=== PATIENT | female | born 1940 | race Caucasian/White ===

== ENCOUNTER 2023-02-19 07:12 | Inpatient (IN) ==
[2023-02-19] MEDS ORDERED: SODIUM CHLORIDE 0.9% 1,000 ML IV ONE (07:19)
--- NOTE | 2023-02-19 07:23 | Emergency Department Note ---
Impression & Plan Syncope, Laceration of head, Aspiration pneumonia, Hypoxia ED Provider Note Name: HENRI PICKETT Age: 83 Sex: Female Arrives Via: Ambulance Informant: Patient, , EMS, son ED Provider: Bay Merritt MD Chief Complaint: Head injury Impression: As per impressions above Medical Decision Making: Pleasant 83-year-old female without significant past medical history arrives following a syncopal event following a night of vomiting. Patient did strike her head and has a large hematoma to left posterior scalp with a laceration. This was closed with [address] of the head is fortunately negative has a CT cervical spine. Patient was a bit confused initially but came to throughout the ER stay. Oxygenation noted to be a bit on the low side she was put on 2 L with good success. Chest x-ray does show some bilateral infiltrates. I suspect that this is an aspiration pneumonia but in the setting of recent travel hypoxia and syncope a CT PE study is indicated furthermore confirmed needed as D-dimer is significantly elevated. CT PE study fortunately shows no overt PE and does show some possible infiltrates. Laboratory testing is otherwise benign. I will get cultures given the hypoxia altered mental status initially and infectious findings. Blood cultures lactic acid obtained and patient was then given some IV Unasyn for aspiration coverage. Hospitalist consulted for further management. Triage/Nursing Notes reviewed by Me Differential:Vasovagal event, dehydration, infection, hypoglycemia, electrolyte abnormalities, cardiac sources, intracerebral event, pulmonary embolism, seizure, toxicologic, neurologic, as well as other pathologies. Vital Signs: reviewed and remarkable for hypoxia Interventions: Unasyn 3 g IV Labs:ED labs Reviewed by me and remarkable for elevated D-dimer all other labs reviewed by me Imagin view chest x-ray as per my interpretation bilateral opacities throughout concerning for multifocal pneumonia versus aspiration. CT of the head without contrast as per my informal interpretation large hematoma of the left posterior scalp no intracranial hemorrhage or skull fracture appreciated. Confirmed by radiologist. CT of the cervical spine without contrast as per my informal interpretation no evidence of fracture or dislocation. Confirmed by radiologist. EKG:As per my interpretation. Indication syncope. Normal sinus rhythm at 96 bpm no ectopy nor ischemia with a QTc of 434. There is a left axis deviation. There are no previous EKGs for comparison. Cardiac/Tele Monitoring: Cardiac Monitoring: An Order was placed for continuous cardiac monitoring. The monitor shows a rate of 90 with a normal sinus rhythm. Consults:Dr. [facility]so[facility] hospitalist service Plan: Disposition:Hospitalization. Condition: Good History of Present Illness: 83-year-old female arrives following a syncopal event. Patient notes she does not really remember what happened this morning. She remembers having [place] food last night going to bed. She thinks she got up to go to the bathroom and does not recall anything from there. notes patient was vomiting and had a syncopal event falling and hitting her head. Patient came to confused. EMS was called. Patient notes a mild frontal headache. Denies any neck pain or stiffness. She is not having any chest pain, shortness of breath, abdominal pain, back pain, current nausea, urinary bowel symptoms, leg swelling or other concerning signs or symptoms. Patient denies any significant past medical history other than a previous lumpectomy. She denies any DVT/PE history in her family. She did have a trip to [facility] from [place] within the last week. She is here currently visiting her son who is a associate professor of biblical studies. Past Medical History:Lumpectomy patient denies other past medical history including stating no history of DVT/PE, CAD, CVA, bleeding. Home Medications:None. States she does not take any aspirin on a daily basis. Allergies:No known drug allergies Vitals:Blood Pressure: 140/80, Pulse 70, RR 20, T 36.8C, O2 88% on RA Physical Exam: GENERAL: Patient is tired/dehydrated/mildly confused appearing and in no acute distress. HEAD: AT/NC NECK: No tenderness palpation. No step-offs. RESPIRATORY: No dyspnea. Clear to auscultation and equal bilaterally. CARDIOVASCULAR: Regular rate and rhythm.No murmur appreciated. GASTROINTESTINAL: Abdomen soft, non-tender, no peritonitis. BACK: No midline tenderness, no CVA tenderness EXTREMITIES: Normal motion all extremities, no cyanosis, no edema. NEUROLOGIC: Alert and oriented though appears just slightly confused. No focal neurologic deficits appreciated SKIN: No rash, no jaundice, no diaphoresis. PSYCH: Appropriate GCS: 15 ED Course: Times/Reassessments: Multiple repeat evaluations, patient's confusion completely resolved she is awake alert oriented. Laceration repaired by me. Given hypoxia hospitalist consulted for further management. Laceration Repair: Location: Posterior left scalp Complexity: Simple Length: 2 cm Verbal consent was obtained after the risks and benefits were explained, including but not limited to bleeding, scarring, infection, pain, and bone/joint/nerve damage. At this time, the risks of the procedure are less than the risks of NOT performing the procedure. A time out was taken and the correct patient and site identified. The skin was prepped with betadine. Lidocaine not used as this would cause just as much discomfort as the 2 projected nicholas that were needed. Copious irrigation was performed using Betadine. The skin was re- prepped with betadine and a sterile field set. The wound was explored for foreign bodies and none found. Examination revealed no injury to deep structures such as tendons, bone, or significant blood vessels. Debridement was not performed. The wound edges were approximated using 2 nicholas. Hemostasis and excellent approximation was achieved. No complications and the patient tolerated the procedure well. I personally performed the entire procedure. Bay Merritt MD Past Med/Surg History Social History Smoking Status: Never smoker Preferred Language: Chinese Feels Safe at Home: Yes Allergies Allergies Allergy/AdvReac Type Severity Reaction Status Date / Time No Known Allergies Allergy Unverified 02/19/23 10:11 Home Meds Home Medications Medication Instructions Recorded Confirmed Allergy Tablet 1 tab PO QAM 02/19/23 02/19/23 albuterol sulfate 90 mcg/actuation 2 puff inhalation QAM 02/19/23 02/19/23 aerosol inhaler calcium 1 tab PO QAM 02/19/23 02/19/23 ciclesonide 160 mcg/actuation 1 puff inhalation BID 02/19/23 02/19/23 aerosol inhaler (Alvesco) doxycycline monohydrate 100 mg 100 mg PO QAM 02/19/23 02/19/23 tablet multivitamin 1 tab PO QAM 02/19/23 02/19/23 Results & Data (ED) Vital Signs Vital Signs - 24 hr 02/19/23 07:23 02/19/23 07:23 02/19/23 07:23 Temperature 36.8 C Temperature Source Oral Pulse Rate 95 H 95 H Pulse Rate [Apical] 94 H Respiratory Rate 19 Respiratory Effort / Characteristics Non-Labored Respiratory Depth Normal Blood Pressure 163/97 H Blood Pressure [Right Arm] 163/97 H Blood Pressure Mean 119 Blood Pressure Mean [Right Arm] 119 Pulse Oximetry 94 Oxygen Delivery Method Room Air Oxygen Flow Rate Sepsis Recent Fever Within 48 Hours No Sepsis New/Unexplained Change in Mental Status No Sepsis Action Taken by Nursing No Action Required 02/19/23 08:00 02/19/23 08:08 Temperature Temperature Source Pulse Rate Pulse Rate [Apical] Respiratory Rate Respiratory Effort / Characteristics Respiratory Depth Blood Pressure Blood Pressure [Right Arm] Blood Pressure Mean Blood Pressure Mean [Right Arm] Pulse Oximetry 88 L 93 Oxygen Delivery Method Room Air Nasal Cannula Oxygen Flow Rate 2 Sepsis Recent Fever Within 48 Hours Sepsis New/Unexplained Change in Mental Status Sepsis Action Taken by Nursing Laboratory Data 02/19/23 07:20 02/19/23 07:20 Lab Results 02/19/23 02/19/23 02/19/23 Range/Units 07:20 09:10 09:36 WBC 8.64 (4.8-10.8) K/ul RBC 5.08 (4.20-5.40) M/uL Hgb 15.0 (12.0-16.0) g/dl Hct 45.8 (37.0-47.0) % MCV 90.2 (80.0-100.0) fL MCH 29.5 (25.0-34.0) pg MCHC 32.8 (32.0-36.0) g/dL RDW Std Deviation 43.5 (36.4-46.3) fL RDW Coeff of Doretha 13.0 (11.5-14.5) % Plt Count 220 (130-400) K/uL MPV 10.9 (9.4-12.4) fL Immature Gran % (Auto) 0.6 % Neut % (Auto) 87.1 % Lymph % (Auto) 5.1 % [place] % (Auto) 6.9 % Eos % (Auto) 0.0 % Baso % (Auto) 0.3 % Neut # (Auto) 7.52 H (1.40-6.50) K/uL Lymph # (Auto) 0.44 L (1.20-3.40) K/uL [place] # (Auto) 0.60 H (0.11-0.59) K/uL Eos # (Auto) 0.00 (0.00-0.50) K/uL Baso # (Auto) 0.03 (0.00-0.20) K/uL Immature Gran # (Auto) 0.05 (0.01-0.20) K/uL D-Dimer 1560 H* (0-500) ug/L FEU Sodium 137 (136-145) mmol/L Potassium 3.8 (3.5-5.1) mmol/L Chloride 103 (98-107) mmol/L Carbon Dioxide 28 (21-32) mmol/L Anion Gap 6 (3-11) BUN 17 (6-23) mg/dl Creatinine 0.73 (0.6-1.2) mg/dl Est Cr Clr Drug Dosing 56.7 ml/min Est GFR ( Amer) 88.9 ml/min Est GFR (Non-Af Amer) 76.7 ml/min BUN/Creatinine Ratio 23.3 H (10-20) Glucose 114 H (70-99(Fasting)) mg/dl Lactate 0.7 (0.4-2.0) mmol/L Calcium 9.6 (8.6-10.3) mg/dl Magnesium 2.3 (1.7-2.4) mg/dl Total Bilirubin 0.8 (0.2-1.0) mg/dl Direct Bilirubin 0.1 (0-0.2) mg/dl AST 40 H (13-39) U/L ALT 30 (7-52) U/L Alkaline Phosphatase 75 (34-104) U/L Troponin I High Sens 3.4 (0-14) pg/ml Total Protein 7.6 (6.0-8.3) gm/dl Albumin 4.4 (3.4-5.0) gm/dl Lipase 22 (11-82) U/L Urine Color Yellow Urine Appearance Cloudy A (Clear) Urine pH 7.0 (4.5-7.5) Ur Specific [place] 1.023 (1.000-1.030) Urine Protein Trace H (Negative) Urine Glucose (UA) Negative (Negative) Urine Ketones Negative (Negative) Urine Blood Negative (Negative) Urine Nitrite Negative (Negative) Urine Bilirubin Negative (Negative) Urine Urobilinogen Negative (Negative) Ur Leukocyte Esterase 2+ H (Negative) Urine WBC (Auto) 10-30 H (0-5) /hpf Urine RBC (Auto) 0-4 (0-4) /hpf U Hyaline Cast (Auto) 1-5 (0-5) /lpf U Epithel Cells (Auto) 20-30 H (0-5) /lpf Urine Bacteria (Auto) Negative (Negative) Administered Medications Discontinued Medications Diphtheria/Pertussis/Tetanus Vacc (Diphtheria/Tetanus/Pertussis Vaccine (Tdap, Age 7+Yrs) 0.5ml Syr/Vl) 0.5 ml IM .ONCE ONE Stop: 02/19/23 08:21 Last Admin: 02/19/23 09:08 Dose: 0.5 ml Documented By: SUKHDEV Sodium Chloride (Nss) 1,000 mls @ 999 mls/hr IV .Q1H1M ONE Stop: 02/19/23 08:19 Last Infusion: 02/19/23 08:58 Dose: Infused Documented By: Admin: 02/19/23 07:56 Dose: 999 mls/hr Documented By: SUKHDEV Ampicillin Sodium/Sulbactam Sodium 3,000 mg/ Sodium Chloride 100 mls @ 200 mls/hr IV NOW STA Stop: 02/19/23 09:40 Last Infusion: 02/19/23 10:40 Dose: Infused Documented By: Admin: 02/19/23 10:10 Dose: 200 mls/hr Documented By: SUKHDEV Ioversol (Optiray 320 125ml) 66 ml IV ONCE ONE Stop: 02/19/23 08:43 Last Admin: 02/19/23 08:42 Dose: 66 ml Documented By: GEM Imaging Data Radiologist's Impression: Cervical Spine CT 02/19/23 07:19 CT cervical spine wo con CT DOSE: 1064.67 mGy.cm CLINICAL HISTORY: 83 years-old Female with syncope, collapse. Acute head and neck trauma status post fall COMPARISON: Head CT of same day TECHNIQUE: Multiple axial CT images of the cervical spine were obtained without contrast. A dose lowering technique was utilized adhering to the principles of ALARA. FINDINGS: Demineralized appearance of the bones. Minimal multilevel intervertebral disc space narrowing with mild uncovertebral hypertrophy and facet arthrosis. Moderate to severe C1-C2 degeneration. Moderate facet arthrosis of the upper thoracic spine. The cervical soft tissues appear unremarkable. The visualized lung apices appear clear. IMPRESSION: No acute cervical spine fracture or subluxation. ACT 112: Negative or not required by law. The above report was generated using voice recognition software. It may contain grammatical, syntax or spelling errors. Electronically signed by: Ever Aquino M.D. 02/19/2023 8:14 AM Chest X-Ray 02/19/23 07:19 SINGLE VIEW CHEST CLINICAL HISTORY: Syncope. FINDINGS: An AP, portable, upright chest radiograph is obtained. No prior studies are available for comparison at the time of dictation. The examination is degraded by portable technique and patient rotation. The heart is enlarged. The pulmonary vasculature is noncongested. There is elevation right hemidiaphragm. There are patchy airspace opacities in the right midlung and at the left lung base. No large pleural effusion or pneumothorax is seen. The skeletal structures are osteopenic. The bony thorax is grossly intact. IMPRESSION: 1. Cardiomegaly without radiographic evidence of congestive failure. 2. Patchy airspace opacities are seen in the right mid lung and at the left lung base. Correlate clinically for evidence of pneumonia/aspiration pneumonitis. Radiographic follow-up to resolution is recommended. ACT 112: Negative or not required by law. Electronically signed by: Jimmie uMrillo M.D. 02/19/2023 7:[address] 02/19/23 07:19 CT SCAN OF THE BRAIN WITHOUT IV CONTRAST CLINICAL HISTORY: Syncope. COMPARISON STUDY: No priors. TECHNIQUE: Unenhanced axial CT scan of the brain is performed from the vertex to the skull base. A dose lowering technique was utilized adhering to the principles of ALARA. FINDINGS: Brain parenchyma: There is age-related involutional change noting moderate subcortical and periventricular microangiopathic disease. There is no hemorrhage, mass effect, or evidence of acute territorial ischemia by CT criteria. Smith-white matter differentiation is preserved. No extra-axial fluid collection is seen. Ventricles, sulci, cisterns: Prominent secondary to involutional change. Intracranial vasculature: There is minimal atherosclerotic calcification of the cavernous carotid artery. Calvarium: The skeletal structures are osteopenic. No depressed calvarial fractures seen. Soft tissues: There is a left posterior parietal scalp injury. Sinuses and mastoids: The visualized paranasal sinuses are clear. The mastoid air cells are well pneumatized. Orbits: The bony orbits are grossly intact. There are bilateral ocular lens implants. IMPRESSION: 1. There is no hemorrhage, mass effect, or evidence of acute territorial ischemia by CT criteria. 2. Left posterior parietal scalp injury. ACT 112: Negative or not required by law. Electronically signed by: Jimmie Murillo M.D. 02/19/2023 7:52 AM Chest CTA 02/19/23 08:16 CT ANGIOGRAM OF THE CHEST CLINICAL HISTORY: Syncope. COMPARISON STUDY: Chest x-ray dated 02/19/2023. TECHNIQUE: Following the IV administration of 66 cc of Optiray 320, CT angiogram of the chest was performed from the upper abdomen to the thoracic inlet utilizing the pulmonary embolus protocol. Images are reviewed in the axial, sagittal, and coronal planes. 3-D MIPS images are created and assessed. IV contrast was administered without complication. A dose lowering technique was utilized adhering to the principles of ALARA. CT DOSE: 467.29 mGy.cm FINDINGS: Thyroid: Imaged portions of the thyroid gland are normal in size and attenuation. Thoracic aorta: There is atherosclerotic calcification of the thoracic aorta, which is normal in caliber and demonstrates standard 3-vessel arch anatomy. No dissection is seen. Pulmonary vasculature: The pulmonary trunk is normal in caliber. There are no filling defects identified in main, lobar, or segmental pulmonary branches to suggest pulmonary embolus. Heart: The heart is enlarged and without pericardial effusion. There are scattered coronary artery calcifications. Lungs and pleural spaces: There is elevation of the right hemidiaphragm. Patchy airspace opacities are seen in the right upper lobe and lingula. No pleural effusion is identified. Foci of probable scarring are seen throughout both lungs. There is diffuse subpleural reticulation. Subpleural scarring in the anterior right lung may be treatment related. Mediastinum: There is no mediastinal lymphadenopathy. Lindsay: Clear. Axillae: There is no axillary lymphadenopathy. Upper abdomen: There is a small hiatal hernia. Partially visualized upper abdominal viscera is otherwise within normal limits. Skeletal structures: The skeletal structures are osteopenic. Degenerative change and hyperkyphosis is noted in the thoracic spine. No lytic or blastic bony lesions are seen. There is an age-indeterminate superior plate compression deformity of T12. Paravertebral edema suggests that this is acute to subacute. Loss of height is mild to moderate and there is only minimal retropulsion of fragments. There are foci of mucus plugging. The trachea and central airways appear clear. Soft tissues: Surgical clips are noted in the right breast. IMPRESSION: 1. There is no evidence of pulmonary embolus in the main, lobar, or segmental pulmonary arteries. 2. Patchy airspace opacities are seen in the right upper lobe and lingula. Correlate clinically for evidence of an infectious/inflammatory pneumonitis. Radiographic follow-up to resolution is recommended. 3. Cardiomegaly. 4. There is an age indeterminant superior endplate compression fracture of T12 as above. Paravertebral edema suggests that this is acute to subacute. Correlate clinically. 5. Additional findings as above. ACT 112: Negative or not required by law. Electronically signed by: Jimmie Murillo M.D. 02/19/2023 9:09 AM Discharge Plan Visit Data Chief Complaint: Fall ED Provider: Bay Merritt Discharge Problem: Syncope, Laceration of head, Aspiration pneumonia, Hypoxia Discharge Instructions Interventions: ED Discharge Assessment Last Done: 02/19/23 12:37 Discharge Problem: Syncope Qualifiers: Encounter type: initial encounter Laceration of head Qualifiers: Encounter type: initial encounter Location of open wound of head: scalp Foreign body presence: without foreign body Qualified Code(s): S01.01XA - Laceration without foreign body of scalp, initial encounter Aspiration pneumonia Qualifiers: Aspiration pneumonia type: unspecified Laterality: bilateral Lung location: u nspecified part of lung Qualified Code(s): J69.0 - Pneumonitis due to inhalation of food and vomit
--- NOTE | 2023-02-19 07:51 | XRay Report ---
SINGLE VIEW CHEST CLINICAL HISTORY: Syncope. FINDINGS: An AP, portable, upright chest radiograph is obtained. No prior studies are available for c omparison at the time of dictation. The examination is degraded by portable technique and patient rot ation. The heart is enlarged. The pulmonary vasculature is noncongested. There is elevation right he midiaphragm. There are patchy airspace opacities in the right midlung and at the left lung base. No l arge pleural effusion or pneumothorax is seen. The skeletal structures are osteopenic. The bony thora x is grossly intact. IMPRESSION: 1. Cardiomegaly without radiographic evidence of congestive failure. 2. Patchy airspace opacities are seen in the right mid lung and at the left lung base. Correlate clin ically for evidence of pneumonia/aspiration pneumonitis. Radiographic follow-up to resolution is farzad mmended. ACT 112: Negative or not required by law. Electronically signed by: Jimmie Murillo M.D. 02/19/2023 7:49 AM
--- NOTE | 2023-02-19 07:55 | CT Scan Report ---
CT SCAN OF THE BRAIN WITHOUT IV CONTRAST CLINICAL HISTORY: Syncope. COMPARISON STUDY: No priors. TECHNIQUE: Unenhanced axial CT scan of the brain is performed from the vertex to the skull base. A do se lowering technique was utilized adhering to the principles of ALARA. FINDINGS: Brain parenchyma: There is age-related involutional change noting moderate subcortical and periventri cular microangiopathic disease. There is no hemorrhage, mass effect, or evidence of acute territorial ischemia by CT criteria. Smith-white matter differentiation is preserved. No extra-axial fluid collec tion is seen. Ventricles, sulci, cisterns: Prominent secondary to involutional change. Intracranial vasculature: There is minimal atherosclerotic calcification of the cavernous carotid art howard. Calvarium: The skeletal structures are osteopenic. No depressed calvarial fractures seen. Soft tissues: There is a left posterior parietal scalp injury. Sinuses and mastoids: The visualized paranasal sinuses are clear. The mastoid air cells are well pneu matized. Orbits: The bony orbits are grossly intact. There are bilateral ocular lens implants. IMPRESSION: 1. There is no hemorrhage, mass effect, or evidence of acute territorial ischemia by CT criteria. 2. Left posterior parietal scalp injury. ACT 112: Negative or not required by law. Electronically signed by: Jimmie Murillo M.D. 02/19/2023 7:52 AM
[2023-02-19 07:56] LABS: Albumin Level 4.4 gm/dl (3.4-5.0); BUN Creatinine Ratio 23.3 (10-20); Basophils # (auto) 0.03 K/uL (0.00-0.20); Basophils % (auto) 0.3 %; Bilirubin Direct 0.1 mg/dl (0-0.2); Bilirubin,Total 0.8 mg/dl (0.2-1.0); Calcium 9.6 mg/dl (8.6-10.3); Creatinine Clr Calc Pharmacy 56.7 ml/min; Est GFR (African American) 88.9 ml/min; Est GFR (Non-African American) 76.7 ml/min; Hematocrit (blood only) 45.8 % (37.0-47.0); Immature Granulocytes # (auto) 0.05 K/uL (0.01-0.20); Immature Granulocytes % (auto) 0.6 %; Lymphocytes # (auto) 0.44 K/uL (1.20-3.40); Lymphocytes % (auto) 5.1 %; Magnesium 2.3 mg/dl (1.7-2.4); Mean Corpuscular Hemoglobin 29.5 pg (25.0-34.0); Mean Corpuscular Hgb Conc 32.8 g/dL (32.0-36.0); Mean Corpuscular Volume 90.2 fL (80.0-100.0); Mean Platelet Volume 10.9 fL (9.4-12.4); Monocytes % (auto) 6.9 %; Neutrophils # (auto) 7.52 K/uL (1.40-6.50); Neutrophils % (auto) 87.1 %; Platelet Count 220 K/uL (130-400); Potassium 3.8 mmol/L (3.5-5.1); RDW Standard Deviation 43.5 fL (36.4-46.3); Red Blood Count 5.08 M/uL (4.20-5.40); Total Protein 7.6 gm/dl (6.0-8.3); White Blood Count 8.64 K/ul (4.8-10.8)
[2023-02-19 08:03] LABS: Troponin I High Sensitivity 3.4 pg/ml (0-14)
[2023-02-19 08:12] LABS: D Dimer 1560 ug/L FEU (0-500)
--- NOTE | 2023-02-19 08:15 | CT Scan Report ---
CT cervical spine wo con CT DOSE: 1064.67 mGy.cm CLINICAL HISTORY: 83 years-old Female with syncope, collapse. Acute head and neck trauma status post fall COMPARISON: Head CT of same day TECHNIQUE: Multiple axial CT images of the cervical spine were obtained without contrast. A dose low ering technique was utilized adhering to the principles of ALARA. FINDINGS: Demineralized appearance of the bones. Minimal multilevel intervertebral disc space narrowi ng with mild uncovertebral hypertrophy and facet arthrosis. Moderate to severe C1-C2 degeneration. Mo derate facet arthrosis of the upper thoracic spine. The cervical soft tissues appear unremarkable. The visualized lung apices appear clear. IMPRESSION: No acute cervical spine fracture or subluxation. ACT 112: Negative or not required by law. The above report was generated using voice recognition software. It may contain grammatical, syntax o r spelling errors. Electronically signed by: Ever Aquino M.D. 02/19/2023 8:14 AM
[2023-02-19] MEDS ORDERED: DIPHTHERIA/TETANUS/PERTUSSIS Vaccine (Tdap, Age 7+yrs) 0.5mL SYR/VL IM ONE (08:20)
[2023-02-19] MEDS ORDERED: OPTIRAY 320 125ml IV ONE (08:42)
--- NOTE | 2023-02-19 09:10 | CT Scan Report ---
CT ANGIOGRAM OF THE CHEST CLINICAL HISTORY: Syncope. COMPARISON STUDY: Chest x-ray dated 02/19/2023. TECHNIQUE: Following the IV administration of 66 cc of Optiray 320, CT angiogram of the chest was per formed from the upper abdomen to the thoracic inlet utilizing the pulmonary embolus protocol. Images are reviewed in the axial, sagittal, and coronal planes. 3-D MIPS images are created and assessed. IV contrast was administered without complication. A dose lowering technique was utilized adhering to the principles of ALARA. CT DOSE: 467.29 mGy.cm FINDINGS: Thyroid: Imaged portions of the thyroid gland are normal in size and attenuation. Thoracic aorta: There is atherosclerotic calcification of the thoracic aorta, which is normal in shanda ernestina and demonstrates standard 3-vessel arch anatomy. No dissection is seen. Pulmonary vasculature: The pulmonary trunk is normal in caliber. There are no filling defects identif ied in main, lobar, or segmental pulmonary branches to suggest pulmonary embolus. Heart: The heart is enlarged and without pericardial effusion. There are scattered coronary artery ca lcifications. Lungs and pleural spaces: There is elevation of the right hemidiaphragm. Patchy airspace opacities ar e seen in the right upper lobe and lingula. No pleural effusion is identified. Foci of probable scarr ing are seen throughout both lungs. There is diffuse subpleural reticulation. Subpleural scarring in the anterior right lung may be treatment related. Mediastinum: There is no mediastinal lymphadenopathy. Lindsay: Clear. Axillae: There is no axillary lymphadenopathy. Upper abdomen: There is a small hiatal hernia. Partially visualized upper abdominal viscera is otherw ise within normal limits. Skeletal structures: The skeletal structures are osteopenic. Degenerative change and hyperkyphosis is noted in the thoracic spine. No lytic or blastic bony lesions are seen. There is an age-indeterminat e superior plate compression deformity of T12. Paravertebral edema suggests that this is acute to sub acute. Loss of height is mild to moderate and there is only minimal retropulsion of fragments. There are foci of mucus plugging. The trachea and central airways appear clear. Soft tissues: Surgical clips are noted in the right breast. IMPRESSION: 1. There is no evidence of pulmonary embolus in the main, lobar, or segmental pulmonary arteries. 2. Patchy airspace opacities are seen in the right upper lobe and lingula. Correlate clinically for e vidence of an infectious/inflammatory pneumonitis. Radiographic follow-up to resolution is recommende d. 3. Cardiomegaly. 4. There is an age indeterminant superior endplate compression fracture of T12 as above. Paravertebra l edema suggests that this is acute to subacute. Correlate clinically. 5. Additional findings as above. ACT 112: Negative or not required by law. Electronically signed by: Jimmie Murillo M.D. 02/19/2023 9:09 AM
[2023-02-19] MEDS ORDERED: AMPICILLIN/SULBACTAM SOD 3,000 MG in SODIUM CHLOR 0.9% MINI-B 100 ML IV STA (09:11)
[2023-02-19 09:21] LABS: Appearance Urine Cloudy (Clear); Bacteria Urine Automated Negative (Negative); Bilirubin Urine Negative (Negative); Blood Urine Negative (Negative); Color Urine Yellow; Epithelial Cell Urine Auto 20-30 /lpf (0-5); Glucose Urine UA Negative (Negative); Ketones Urine Negative (Negative); Leukocyte Esterase Urine 2+ (Negative); Nitrite Urine Negative (Negative); Protein Urine Trace (Negative); RBC Urine Automated 0-4 /hpf (0-4); Specific Gravity Urine 1.023 (1.000-1.030); Urobilinogen Urine Negative (Negative)
--- NOTE | 2023-02-19 10:52 | History & Physical Report ---
Date of Service February 19, 2023 Assessment & Plan (1) Syncope: Plan: patient's syncope was surrounding her vomiting and likely could be vasovagal. Patient is no orthostasis in the emergency department additional liter of crystalloid to be given to be placed on pipelaying fitter. She takes no medications that could be attributed to lowering her blood pressure. (2) Abnormal chest x-ray: Plan: Patient has CT scan of the chest to rule out PE which did not show any PE there are some changes of the right upper lobe however the patient disclosed that she had radiation to her right breast in the distant past. She is not clinically exhibiting any signs of infectious etiologies however we will perform a BioFire. Patient is up-to-date with all of her vaccinations including RSV according to the patient. There are no other ill contacts at home but she did recently have air travel to the area approximately 6 days prior (3) Laceration of head: Plan: patient laceration repaired with nicholas these will need to be removed in 5 to 7 days. Certainly concussion could be explanation for her amnesia. Plan Patient is full code. Heparin for DVT prevention be undertaken History of Present Illness Primary Care Provider: NO PCP 83-year-old female who has been relatively healthy who is visiting from [place]. Patient's been in [facility] for approximately 6 days. Patient's been in her normal state of health with exception of diarrhea on the first day she arrived. Her whole family ate Irish food 1 day prior to presentation. Patient developed some diarrhea and fatigue. Patient went to sleep and woke up around 4:00 in the morning feeling nauseous went to the bathroom vomited fell over and hit her head on the vanity in the bathroom. Patient cannot recall these events here described by her . Patient had a small left occipital laceration stapled with 2 nicholas. Imaging of her brain neck and chest did not reveal any acute internal injuries. There is an old T12 fracture which she confirms was treated in the summer in [place]. Patient has some radiographic changes in the right upper lobe. Patient was given Unasyn in the emergency department. Patient does disclose that she had a right breast lumpectomy and radiation treatment years ago these changes could be Cenestin changes from x-ray therapy. She has had no coughing. Her lung ex amination is clear. She has no leukocytosis. She did have some transient hypoxemia. On presentation she also has an abnormal urine analysis and did have an elevated D-dimer for which CTA was performed without evidence of pulmonary embolism or confirmed pneumonia patient be brought in on telemetry. A respiratory BioFire will be sent. Urine culture will be sent. Additional 1 L of crystalloid will be administered. Allergies Allergy/AdvReac Type Severity Reaction Status Date / Time No Known Allergies Allergy Unverified 02/19/23 10:11 Home Medications Medication Instructions Recorded Confirmed Type Allergy Tablet 1 tab PO QAM 02/19/23 02/19/23 History albuterol sulfate 90 mcg/actuation 2 puff inhalation QAM 02/19/23 02/19/23 History aerosol inhaler calcium 1 tab PO QAM 02/19/23 02/19/23 History ciclesonide 160 mcg/actuation 1 puff inhalation BID 02/19/23 02/19/23 History aerosol inhaler (Alvesco) doxycycline monohydrate 100 mg 100 mg PO QAM 02/19/23 02/19/23 History tablet multivitamin 1 tab PO QAM 02/19/23 02/19/23 History Past Med/Surg History Social History Smoking Status: Never smoker Preferred Language: Croatian Feels Safe at Home: Yes Review of Systems Review of Systems: Mild To moderate distress and fatigue no headache, no visual changes does have trauma to her posterior occiput with some bleeding no speech or swallowing issues no chest pain, pressure or palpitations no shortness of breath, cough or wheezes no abdominal pain, prehospital nausea or vomiting with diarrhea no dysuria, hematuria or frequency does have incontinence intermittently no focal joint pain or swelling no back pain, CVA tenderness or radicular pain no bruising, bleeding or rashes no focal signs of weakness or numbness or altered sensation does have amnesia regarding the event no complaints of anxiety or depression.. Physical Exam Physical Exam: the patient appeared well nourished and normally developed. Vital signs as documented. Head exam is normocephalic 2 small nicholas seen in the puncture wound in her left occiput Neck is without JVD, thyromegaly, or carotid bruits. Lungs are clear to auscultation, no focal loss of breath sounds Cardiac exam, Rhythm is regular.. No murmurs, rubs or gallops. Abdominal exam reveals normal bowel sounds, soft non tender, no masses Extremities are nonedematous and both pedal pulses are present Neurologic exam is alert and oriented, no focal loss of strength or sensation Skin is without bruises or rashes Psychologically is without concerns for anxiety or depression.. Results & Data Results & Data Vital Signs (Past 12 Hours) Vital Signs Temp Pulse Pulse Resp BP BP Pulse Ox 02/19/23 10:15 112/97 02/19/23 10:13 87 19 97 02/19/23 08:08 93 02/19/23 08:00 88 L 02/19/23 07:23 94 H 163/97 H 02/19/23 07:23 98.3 F 95 H 19 163/97 H 94 02/19/23 07:23 95 H O2 Del Method O2 Flow Rate 02/19/23 10:15 02/19/23 10:13 Nasal Cannula 2 02/19/23 08:08 Nasal Cannula 2 02/19/23 08:00 Room Air 02/19/23 07:23 02/19/23 07:23 Room Air 02/19/23 07:23 Laboratory Results reviewed CBC reviewed chemistry reviewed D-dimer Diagnostic Findings reviewed all imaging as follows Cervical Spine CT 02/19/23 07:19 CT cervical spine wo con CT DOSE: 1064.67 mGy.cm CLINICAL HISTORY: 83 years-old Female with syncope, collapse. Acute head and neck trauma status post fall COMPARISON: Head CT of same day TECHNIQUE: Multiple axial CT images of the cervical spine were obtained without contrast. A dose lowering technique was utilized adhering to the principles of ALARA. FINDINGS: Demineralized appearance of the bones. Minimal multilevel intervertebral disc space narrowing with mild uncovertebral hypertrophy and facet arthrosis. Moderate to severe C1-C2 degeneration. Moderate facet arthrosis of the upper thoracic spine. The cervical soft tissues appear unremarkable. The visualized lung apices appear clear. IMPRESSION: No acute cervical spine fracture or subluxation. ACT 112: Negative or not required by law. The above report was generated using voice recognition software. It may contain grammatical, syntax or spelling errors. Electronically signed by: Ever Aquino M.D. 02/19/2023 8:14 AM Chest X-Ray 02/19/23 07:19 SINGLE VIEW CHEST CLINICAL HISTORY: Syncope. FINDINGS: An AP, portable, upright chest radiograph is obtained. No prior studies are available for comparison at the time of dictation. The examination is degraded by portable technique and patient rotation. The heart is enlarged. The pulmonary vasculature is noncongested. There is elevation right hemidiaphragm. There are patchy airspace opacities in the right midlung and at the left lung base. No large pleural effusion or pneumothorax is seen. The skeletal structures are osteopenic. The bony thorax is grossly intact. IMPRESSION: 1. Cardiomegaly without radiographic evidence of congestive failure. 2. Patchy airspace opacities are seen in the right mid lung and at the left lung base. Correlate clinically for evidence of pneumonia/aspiration pneumonitis. Radiographic follow-up to resolution is recommended. ACT 112: Negative or not required by law. Electronically signed by: Jimmie Murillo M.D. 02/19/2023 7:[address] 02/19/23 07:19 CT SCAN OF THE BRAIN WITHOUT IV CONTRAST CLINICAL HISTORY: Syncope. COMPARISON STUDY: No priors. TECHNIQUE: Unenhanced axial CT scan of the brain is performed from the vertex to the skull base. A dose lowering technique was utilized adhering to the principles of ALARA. FINDINGS: Brain parenchyma: There is age-related involutional change noting moderate subcortical and periventricular microangiopathic disease. There is no hemorrhage, mass effect, or evidence of acute territorial ischemia by CT criteria. Smith-white matter differentiation is preserved. No extra-axial fluid collection is seen. Ventricles, sulci, cisterns: Prominent secondary to involutional change. Intracranial vasculature: There is minimal atherosclerotic calcification of the cavernous carotid artery. Calvarium: The skeletal structures are osteopenic. No depressed calvarial fractures seen. Soft tissues: There is a left posterior parietal scalp injury. Sinuses and mastoids: The visualized paranasal sinuses are clear. The mastoid air cells are well pneumatized. Orbits: The bony orbits are grossly intact. There are bilateral ocular lens implants. IMPRESSION: 1. There is no hemorrhage, mass effect, or evidence of acute territorial ischemia by CT criteria. 2. Left posterior parietal scalp injury. ACT 112: Negative or not required by law. Electronically signed by: Jimmie Murillo M.D. 02/19/2023 7:52 AM Chest CTA 02/19/23 08:16 CT ANGIOGRAM OF THE CHEST CLINICAL HISTORY: Syncope. COMPARISON STUDY: Chest x-ray dated 02/19/2023. TECHNIQUE: Following the IV administration of 66 cc of Optiray 320, CT angiogram of the chest was performed from the upper abdomen to the thoracic inlet utilizing the pulmonary embolus protocol. Images are reviewed in the axial, sagittal, and coronal planes. 3-D MIPS images are created and assessed. IV contrast was administered without complication. A dose lowering technique was utilized adhering to the principles of ALARA. CT DOSE: 467.29 mGy.cm FINDINGS: Thyroid: Imaged portions of the thyroid gland are normal in size and attenuation. Thoracic aorta: There is atherosclerotic calcification of the thoracic aorta, which is normal in caliber and demonstrates standard 3-vessel arch anatomy. No dissection is seen. Pulmonary vasculature: The pulmonary trunk is normal in caliber. There are no filling defects identified in main, lobar, or segmental pulmonary branches to suggest pulmonary embolus. Heart: The heart is enlarged and without pericardial effusion. There are scattered coronary artery calcifications. Lungs and pleural spaces: There is elevation of the right hemidiaphragm. Patchy airspace opacities are seen in the right upper lobe and lingula. No pleural effusion is identified. Foci of probable scarring are seen throughout both lungs. There is diffuse subpleural reticulation. Subpleural scarring in the anterior right lung may be treatment related. Mediastinum: There is no mediastinal lymphadenopathy. Lindsay: Clear. Axillae: There is no axillary lymphadenopathy. Upper abdomen: There is a small hiatal hernia. Partially visualized upper abdominal viscera is otherwise within normal limits. Skeletal structures: The skeletal structures are osteopenic. Degenerative change and hyperkyphosis is noted in the thoracic spine. No lytic or blastic bony lesions are seen. There is an age-indeterminate superior plate compression deformity of T12. Paravertebral edema suggests that this is acute to subacute. Loss of height is mild to moderate and there is only minimal retropulsion of fragments. There are foci of mucus plugging. The trachea and central airways appear clear. Soft tissues: Surgical clips are noted in the right breast. IMPRESSION: 1. There is no evidence of pulmonary embolus in the main, lobar, or segmental pulmonary arteries. 2. Patchy airspace opacities are seen in the right upper lobe and lingula. Correlate clinically for evidence of an infectious/inflammatory pneumonitis. Radiographic follow-up to resolution is recommended. 3. Cardiomegaly. 4. There is an age indeterminant superior endplate compression fracture of T12 as above. Paravertebral edema suggests that this is acute to subacute. Correlate clinically. 5. Additional findings as above. ACT 112: Negative or not required by law. Electronically signed by: Jimmie Murillo M.D. 02/19/2023 9:09 AM ECG Additional Comments: EKG is normal sinus rhythm with indeterminate changes not consistent with ACS Code Status & VTE Plan VTE Prophylaxis Plan VTE Prophylaxis will be ordered: Yes PG Care Time/CCT Total # of Minutes Spent Total Time Spent with Patient: Total time spent is greater than 50% in coordination of care (as documented) at patient's floor/unit and/or counseling patient: Coding Level of Care Code 67367 INT INP/OBS CARE 2/55MIN Diagnoses Syncope R55 Abnormal chest x-ray R93.89 Laceration of head S01.91XA
[2023-02-19 11:27] LABS: Adenovirus PCR Not Detected (NotDetected); Bordetella parapertussis PCR Not Detected (NotDetected); Bordetella pertussis PCR Not Detected (NotDetected); Chlamydia pneumoniae PCR Not Detected (NotDetected); Coronavirus 229E PCR Not Detected (NotDetected); Coronavirus CoV-2 (COVID19)PCR Not Detected (NotDetected); Coronavirus HKU1 PCR Not Detected (NotDetected); Coronavirus NL63 PCR Not Detected (NotDetected); Coronavirus OC43PCR Not Detected (NotDetected); Human Metapneumovirus PCR Not Detected (NotDetected); Influenza A PCR Not Detected (NotDetected); Influenza B PCR Not Detected (NotDetected); Mycoplasma pneumoniae PCR Not Detected (NotDetected); Parainfluenza Virus 1 PCR Not Detected (NotDetected); Parainfluenza Virus 2 PCR Not Detected (NotDetected); Parainfluenza Virus 3 PCR Not Detected (NotDetected); Parainfluenza Virus 4 PCR Not Detected (NotDetected); Respiratory Syncytial VirusPCR Not Detected (NotDetected); Rhinovirus/Enterovirus PCR Not Detected (NotDetected)
[2023-02-19] MEDS ORDERED: ALUMINUM/MAGNESIUM SUSP 30 ML UDC PO PRN (12:36)
[2023-02-19] MEDS ORDERED: ONDANSETRON INJ 2 MG/ML 2 ML VIAL IV PRN (12:36)
[2023-02-19] MEDS ORDERED: ACETAMINOPHEN 325 MG TAB PO PRN (12:36)
[2023-02-19] MEDS: SODIUM CHLORIDE 0.9% 1,000 ML IV SCH (14:00)
[2023-02-19] MEDS ORDERED: PROMETHAZINE HCL 12.5 MG in SODIUM CHLORIDE 0.9% 50 ML IV PRN (18:28)
[2023-02-19] MEDS ORDERED: cefTRIAXone SODIUM 2,000 MG in DEXTROSE 5 % MINI-B 50 ML IV SCH (19:00)
--- NOTE | 2023-02-19 19:34 | Electrocardiogram Report ---
Test Reason : Blood Pressure : / mmHG Vent. Rate : 096 BPM Atrial Rate : 096 BPM P-R Int : 162 ms QRS Dur : 080 ms QT Int : 344 ms P-R-T Axes : 052 -37 022 degrees QTc Int : 434 ms Normal sinus rhythm Possible Left atrial enlargement Left axis deviation Anterolateral infarct , age undetermined Abnormal ECG No previous ECGs available Confirmed by Facundo Merino ([id number]) on 02/19/2023 7:34:41 PM Referred By: REFERRED SELF Confirmed By:Sammy Merino
[2023-02-19] MEDS: HEPARIN SOD 5,000 UNIT/0.5 ML VIAL SQ SCH (20:36)
[2023-02-20] MEDS: SODIUM CHLORIDE 0.9% 1,000 ML IV SCH
[2023-02-20] MEDS ORDERED: ONDANSETRON 4 MG OD TAB PO SCH
[2023-02-20 06:13] LABS: Hematocrit (blood only) 37.5 % (37.0-47.0); Hemoglobin 12.6 g/dl (12.0-16.0); Mean Corpuscular Hemoglobin 29.9 pg (25.0-34.0); Mean Corpuscular Hgb Conc 33.6 g/dL (32.0-36.0); Mean Corpuscular Volume 89.1 fL (80.0-100.0); Mean Platelet Volume 10.4 fL (9.4-12.4); Platelet Count 194 K/uL (130-400); RDW Coefficient of Variation 13.2 % (11.5-14.5); RDW Standard Deviation 43.1 fL (36.4-46.3); Red Blood Count 4.21 M/uL (4.20-5.40); White Blood Count 5.05 K/ul (4.8-10.8)
[2023-02-20 06:37] LABS: Albumin Level 3.4 gm/dl (3.4-5.0); BUN Creatinine Ratio 10.5 (10-20); Bilirubin Direct 0.1 mg/dl (0-0.2); Bilirubin,Total 0.6 mg/dl (0.2-1.0); Creatinine Clr Calc Pharmacy 54.5 ml/min; Est GFR (African American) 84.7 ml/min; Est GFR (Non-African American) 73.1 ml/min; Magnesium 2.1 mg/dl (1.7-2.4); Potassium 3.3 mmol/L (3.5-5.1); Total Protein 5.9 gm/dl (6.0-8.3)
[2023-02-20] MEDS: HEPARIN SOD 5,000 UNIT/0.5 ML VIAL SQ SCH (08:49)
--- NOTE | 2023-02-20 18:36 | Discharge Summary ---
Date of Service February 20, 2023 Admission HPI Per Admitting Provider 83-year-old female who has been relatively healthy who is visiting from [place]. Patient's been in [facility] for approximately 6 days. Patient's been in her normal state of health with exception of diarrhea on the first day she arrived. Her whole family ate Pashto food 1 day prior to presentation. Patient developed some diarrhea and fatigue. Patient went to sleep and woke up around 4:00 in the morning feeling nauseous went to the bathroom vomited fell over and hit her head on the vanity in the bathroom. Patient cannot recall these events here described by her . Patient had a small left occipital laceration stapled with 2 nicholas. Imaging of her brain neck and chest did not reveal any acute internal injuries. There is an old T12 fracture which she confirms was treated in the summer in [place]. Patient has some radiographic changes in the right upper lobe. Patient was given Unasyn in the emergency department. Patient does disclose that she had a right breast lumpectomy and radiation treatment years ago these changes could be Cenestin changes from x-ray therapy. She has had no coughing. Her lung examination is clear. She has no leukocytosis. She did have some transient hypoxemia. On presentation she also has an abnormal urine analysis and did have an elevated D-dimer for which CTA was performed without evidence of pulmonary embolism or confirmed pneumonia patient be brought in on telemetry. A respiratory BioFire will be sent. Urine culture will be sent. Additional 1 L of crystalloid will be administered. Principal Diagnosis Suspected enteritis from food Discharge Exam Awake alert appropriate no further nausea vomiting diarrhea. Able to tolerate breakfast catching a flight around noon Discharge Data Allergies Allergy/AdvReac Type Severity Reaction Status Date / Time No Known Allergies Allergy Unverified 02/19/23 10:11 Consultations 02/19/23 09:49 ED Decision to Admit Stat Ordered Studies 02/19/23 07:19 CT cervical spine wo con Stat CT head/brain wo con Stat 02/19/23 08:16 CT angio chest PE protocol Stat Hospital Course (1) Syncope: patient's syncope was surrounding her vomiting and likely could be vasovagal. Patient is no orthostasis in the emergency department additional liter of crystalloid She takes no medications that could be attributed to lowering her blood pressure. (2) Abnormal chest x-ray: Patient has CT scan of the chest to rule out PE which did not show any PE there are some changes of the right upper lobe however the patient disclosed that she had radiation to her right breast in the distant past. She is not clinically exhibiting any signs of infectious etiologies and respiratory BioFire was performed and is negative for infectious etiologies . Patient is up-to-date with all of her vaccinations including RSV according to the patient. There are no other ill contacts at home but she did recently have air travel to the area approximately 6 days prior Feel radiographic changes likely could be chronic will recommend outpatient follow-up when she returns to [place] (3) Laceration of head: patient laceration repaired with nicholas these will need to be removed in 5 to 7 days. Certainly concussion could be explanation for her amnesia. Plan Patient is full code. Total Time Total Time Spent Total Time Spent (In Minutes): It required less than 30 minutes to prepare this patient for discharge Discharge Plan Discharge Items Patient Disposition: Home - Self-Care Reason For Visit: TRAUMATIC SYNCOPE Discharge Diagnosis: syncope laceration to scalp possible uti Activity: Per Instructions section Non-emergency contact: Primary Care Provider Call non-emergency contact if: your symptoms worsen Follow-up/Referrals: PCP,NO [Primary Care Provider] - Diet: Regular Addtl Attending Provider Instructions: please have your nicholas removed in about a week from when they were placed, the day before removal have your use some antibiotic ointment or vaseline on the wound to loosen up any scabs that may be entangled with the nicholas please rest and recover you may have a slight concussion from the injury to your head please drink plenty of liquids and eat light foods for the first day or two after discharge Addtl Channeler Insole Provider Instructions: you will be given a zofran(ondansetron) pill to help if your nausea returns Pending Studies at Discharge: No Stand-Alone Forms: My DecisionView, Smoking Cessation Medications and DC Order Prescriptions: Continued Allergy Tablet 1 tab PO QAM Patient Comments: unsure of medication name multivitamin Tablet 1 tab PO QAM doxycycline monohydrate 100 mg tablet 100 mg PO QAM albuterol sulfate 90 mcg/actuation HFA aerosol inhaler 2 puff INHALATION QAM Alvesco 160 mcg/actuation HFA aerosol inhaler 1 puff INHALATION BID calcium 1 tab PO QAM Rx Instructions: unknown dose Discharge Orders: Discharge Order (Routine); Ordered 02/20/23 Ordered By: Sunny Lindsay/Other Patient Handouts: What Is Syncope Admission Data Admit Date/Time: 02/19/23 10:02 Attending Provider: Sunny José Admit Provider: Sunny José Primary Care Provider: PCP,NO Other Providers: Sunny José Other Interventions: Discharge Summary Assessment (RN) Last Done: 02/20/23 09:22 Coding Level of Care Code 07987 IN/OBS DISCH 30 MIN/LESS Diagnoses Syncope R55 Encounter type: initial encounter Abnormal chest x-ray R93.89 Laceration of head S01.01XA Encounter type: initial encounter Foreign body presence: without foreign body Location of open wound of head: scalp
== END 2023-02-20 10:05 | disposition home or self-care (01) | DRG 312 ==
LOC: ED 07:12 → EDINP 10:02 → 2S 12:37